=== PATIENT | female | born 1995 | race Two or more races ===

== ENCOUNTER 2018-07-06 02:53 | Emergency (ER) | payer OTHER ==
[~2018-07-06] VITALS: Ht 165.1 cm; Wt 120.0 kg
[2018-07-06 02:57] VITALS: BP 157/111
== END 2018-07-06 03:47 | disposition home or self-care (01) ==
LOC: ED 03:42
DX: T18.128A Food in esophagus causing other injury, initial encounter (principal); F17.200 Nicotine dependence, unspecified, uncomplicated; X58.XXXA Exposure to other specified factors, initial encounter; Y93.89 Activity, other specified; Y99.8 Other external cause status; Y92.89 Other specified places as the place of occurrence of the external cause
CPT/HCPCS: 99281